=== PATIENT | female | born 1965 | race Caucasian/White ===

== ENCOUNTER → 2020-07-21 | Outpatient (CLI) | payer BC | END | disposition home or self-care (01) | LOC: COVID19 12:58 | PROVIDERS: ATTEND Social Worker Clinical | DX: U07.1 COVID-19 (principal) ==

== ENCOUNTER → 2021-08-13 | Outpatient (CLI) | payer BC | END | disposition home or self-care (01) | LOC: MAMMO 03:06 | PROVIDERS: ATTEND Family Medicine | DX: Z12.31 Encounter for screening mammogram for malignant neoplasm of breast (principal) ==

== ENCOUNTER → 2023-04-16 | Outpatient (CLI) | payer BC | END | disposition home or self-care (01) | LOC: CP 01:20 | PROVIDERS: ATTEND Student in an Organized Health Care Education/Training Program | DX: R05.3 Chronic cough (principal) ==

== ENCOUNTER → 2023-05-21 | Outpatient (CLI) | payer BC | END | disposition home or self-care (01) | LOC: MAMMO 05-20 14:00 | PROVIDERS: ATTEND Family Medicine | DX: Z12.31 Encounter for screening mammogram for malignant neoplasm of breast (principal); I08.0 Rheumatic disorders of both mitral and aortic valves; R94.2 Abnormal results of pulmonary function studies ==

== ENCOUNTER → 2024-07-28 | Outpatient (CLI) | payer BC | END | disposition home or self-care (01) | LOC: MAMMO 05-30 11:30 | PROVIDERS: ATTEND Family Medicine | DX: Z01.818 Encounter for other preprocedural examination (principal); Z12.31 Encounter for screening mammogram for malignant neoplasm of breast ==